=== PATIENT | male | born 1970 | race Caucasian/White ===

== ENCOUNTER 2020-07-09 23:36 | Emergency (ER) | payer OTHER, SELFPAY ==
--- NOTE | 2020-07-09 00:15 | RAD_ITS ---
STUDY: X-RAY CHEST REASON FOR EXAM: Male, 50 years old. CHEST PAIN X 2 DAYS. SOB X 1 YEAR, DIZZINESS, NUMBNESS TO THE BACK OF THE HEAD. TECHNIQUE: Single frontal view of the chest. COMPARISON: None. FINDINGS: The lungs are clear and expanded. There is no demonstrated pleural abnormality. Normal size heart. Normal mediastinum and poly. Normal visualized pulmonary arteries. Normal visualized aortic arch and descending thoracic aorta. Normal visualized thoracic spine. Normal visualized ribs, clavicles, and shoulders. There is no demonstrated abnormality of the visualized soft tissue structures of the upper abdomen. RAD/Chest 1 View (Portable) IMPRESSION: Normal x-ray examination of the chest. Electronically Signed: Heriberto Mclean MD at 0:39 EDT Tel , Service support ,
[2020-07-09 23:37] VITALS: BP 168/95; PULSE 74; RESP 18; TEMP 38.3; O2SAT 96; BMI 39.9
--- NOTE | 2020-07-09 23:38 | ED.RN ---
NO OLD EKGS IN MUSE
--- NOTE | 2020-07-09 23:46 | EKG12_ITS ---
Test Reason : CP Blood Pressure : / mmHG Vent. Rate : 075 BPM Atrial Rate : 075 BPM P-R Int : 140 ms QRS Dur : 096 ms QT Int : 354 ms P-R-T Axes : 031 027 055 degrees QTc Int : 395 ms Normal sinus rhythm Normal ECG Confirmed by MO SANCHEZ, NEISHA ([id number]), newspaper editor managing SHUBHAM BARRAZA ([id number]) on 07/17/2020 11:19:35 A M Referred By: RAFIA Confirmed By:FELICE HASSAN MD
[2020-07-10] MEDS: 0.9% Normal Saline 1,000 ML 1000 ML IV (00:11)
[2020-07-10 00:12] VITALS: O2SAT 97
[2020-07-10 00:12] LABS: Bacteria 0 SEEN /hpf (None Seen); Mucous, Urine 0 SEEN /hpf (<or=2+)
[2020-07-10 00:18] LABS: Color, Urine Yellow (Yellow); Glucose, Dipstick Normal (Normal); Ketone-Dipstick 5 mg/dl (Negative); Leukocyte Esterase-Dipstick Negative /ul (Negative); Nitrite-Dipstick Negative (Negative); Occult Blood-Urine 10 /ul (Negative); Protein-Dipstick 15 mg/dl (Negative); Specific Gravity, Urine 1.025 (1.002-1.030); Urine Bilirubin Dipstick Negative (Negative); Urine Clarity Sl. Cloudy (Clear); Urine Urobilinogen Normal (Normal)
[2020-07-10 00:20] LABS: Absolute Lymphocyte Count 1.04 X10^3/uL (0.83-4.51); Absolute Neutrophil Count 3.1 X10^3/uL (2.0-7.7); Basophil# 0.04 X10^3/uL; Basophil% 0.8 % (0-1); Eosinophil# 0.02 X10^3/uL; Eosinophils% 0.4 % (0-5); Hematocrit 42.6 % (40-54); Hemoglobin 14.5 g/dL (13.0-16.5); Lymphocyte # 1.04 X10^3/ul (4.0); Lymphocyte % 20.9 % (19-41); Mean Corpuscular Hgb 28.3 pg (27.0-32.0); Mean Platelet Vol. 9.1 fl (6.2-12.0); Monocyte# 0.73 X10^3/uL; Monocyte% 14.7 % (0-10); NRBC Flagged by Analyzer 0 % (0-5); Neutrophil # 3.12 X10^3/uL (2.7-7.7); Neutrophil % 62.8 % (47-70); Platelet Count 195 K/mm3 (150-450); RBC Distribution Width CV 13.2 % (11.6-14.6); RBC Distribution Width SD 39.6 fl (35.1-43.9); Red Blood Count 5.13 M/mm3 (4.6-6.2)
[2020-07-10 00:30] LABS: Red Blood Cells-Urine 0-5 SEEN /hpf (0-5); Squamous Epithelial Cells - UA 0 SEEN /hpf (0-5); White Blood Cells 0-5 SEEN /hpf (0-5)
[2020-07-10 00:33] LABS: Anion Gap 6 (5-15); BUN 16 mg/dL (7-18); BUN/Creat Ratio 9.1 RATIO (10-20); CPK Total, Creatine Kinase 191 U/L (39-308); Calcium,Total 8.6 mg/dL (8.5-10.1); Chloride 104 mmol/L (98-107); Creatinine, Serum 1.76 mg/dL (0.70-1.30); EST Glomerular Filtration Rate 44 mL/min (>60); Est Glom Filt Rate - Afr Amer 53 mL/min (>60); Estimated Creatinine Clearance 52.89 ml/min; Glucose 123 mg/dL (74-106); Potassium 3.5 mmol/L (3.5-5.1); Sodium Level 139 mmol/L (136-145)
[2020-07-10] MEDS: Acetaminophen 500 MG Tablet 1000 MG PO (00:42)
[2020-07-10 00:43] VITALS: BP 159/89; PULSE 74; RESP 22; TEMP 38.7; O2SAT 96
[2020-07-10 00:49] LABS: Lipase 212 U/L (73-393)
[2020-07-10 00:51] LABS: AST(SGOT) 23 U/L (15-37); Alanine Aminotransfer ALT/SGPT 43 U/L (16-61); Albumin, Serum 3.7 g/dL (3.2-5.0); Alkaline Phosphatase 113 U/L (45-117); Bilirubin, Direct 0.17 mg/dL (0.00-0.30); Globulin 3.5 g/dL (2.2-4.2); Protein, Total 7.2 g/dL (6.4-8.2)
--- NOTE | 2020-07-10 01:14 | CPS ---
pt refused covid swab-dr son aware
--- NOTE | 2020-07-10 01:19 | ED.VISSUMM ---
- ER Visit Summary Date of Service: 07/10/20 Chief Complaint: Myalgias and fever History of Present Illness: The patient is a [address] Angel Brown. He reports that he has had subjective fever and chills that began 2 days ago. Reports that he has had a constant chest pain that is 8 of 10 at worst and 7 out of 10 currently. States is worsened by exertion, breathing, or movement of his torso. Is relieved by Tylenol. Does report is been mildly short of breath. He denies a cough. Patient reports that his urine has seemed hot.. He denies any frequency. He denies any abdominal pain, nausea, vomiting, or diarrhea. He complains of diffuse myalgias. He states he has headache is 4-10 in severity. He denies any numbness or weakness. Does report that he is lightheaded. He gets worse when he stands. He has not passed out. Physical Examination: Vitals: Stable. Afebrile. General: Well-nourished and well-developed. Head: Normocephalic atraumatic. Neck: Supple, no lymphadenopathy. No JVD. Nontender. Cardiovascular: Regular rate and rhythm. No murmurs. Respiratory: No respiratory distress. Clear to auscultation bilaterally. Abdominal: Soft, mild diffuse tenderness palpation over the upper abdomen in the left upper quadrant, right upper quadrant, and epigastric regions, nondistended, normal bowel sounds. No guarding, rebound, or peritoneal signs. Back: Nontender. Extremities: Nontender, no edema. Skin: Normal color, no rash. Neurologic: Alert and oriented ?3. Cranial nerves II through XII are intact. Normal strength and sensation. Psych: Normal affect. Test Results: EKG is sinus at [address] changes. Troponin is negative after 2 days of constant pain. CPK is normal. UA shows ketones and blood. LFTs are normal. Lipase is normal. Chem-7 shows a creatinine 1.76 (no old creatinine for comparison) and glucose of 123. CBC shows monocytes of 15. Refused a COVID-19 test. Clinical Impression(s) from Imaging Studies Chest X-Ray 07/09/20 00:15 IMPRESSION: Normal x-ray examination of the chest. Electronically Signed: Heriberto Mclean MD at 0:39 EDT Tel , Service support , Emergency Department Course and Treatment: We discussed the possibility of this being COVID-19. Patient does not feel that that is the cause of his fever and has refused the test for this. I also discussed the possibility of prostatitis. Patient refused a rectal exam, but he does want to be treated for prostatitis as his urination is not normal. Treatment Plan: Patient was given a dose of Cipro here. He will be discharged on Cipro. Instructed to follow-up with Dr. Angel Brown 1 to 2 days if not improving. Return to the emergency department for any worsening symptoms. Disposition: To home in improved and stable condition. Impression: 1. Fever, uncertain cause. 2. Dyspnea. 3. Renal insufficiency. This note was generated with [employer] software. It may contain incorrect words, spelling, and punctuation that were not noted in review of the chart prior to signing ED Disposition - Plan for ED Patient: Instructions: ED FUO Adult Prescriptions: Ciprofloxacin [Cipro] 500 mg PO BID #20 tablet Referrals: Angel Brown MD [Primary Care Provider] - 1-2 Days if not improving
[2020-07-10 01:29] VITALS: BP 157/84; PULSE 67; RESP 13; O2SAT 96
[2020-07-10] MEDS: Ciprofloxacin 500 MG Tablet PO (01:35)
[2020-07-10 15:13] LABS: Hemoglobin A1c 5.6 % (3.8-5.6)
== END 2020-07-10 01:35 | disposition home or self-care (01) ==
PROVIDERS: Emergency Provider Emergency Medicine; PCP Family Medicine
DX: R50.9 Fever, unspecified (principal); N28.9 Disorder of kidney and ureter, unspecified; R06.00 Dyspnea, unspecified; R42 Dizziness and giddiness; R51 Headache; R06.02 Shortness of breath
CPT/HCPCS: 71045; 80048; 80076; 81001; 82550; 83036; 83690; 84484; 85025; 93005; 96360; 99285; J7030; A4216

== ENCOUNTER → 2020-08-07 15:13 | Outpatient (CLI) | payer OTHER, SELFPAY ==
[2020-07-09 23:37] VITALS: BMI 39.9
[2020-08-07 17:16] LABS: Anion Gap 8 (5-15); BUN 15 mg/dL (7-18); BUN/Creat Ratio 13.2 RATIO (10-20); Calcium,Total 8.7 mg/dL (8.5-10.1); Chloride 105 mmol/L (98-107); Creatinine, Serum 1.14 mg/dL (0.70-1.30); EST Glomerular Filtration Rate 72 mL/min (>60); Est Glom Filt Rate - Afr Amer 87 mL/min (>60); Glucose 93 mg/dL (74-106); Potassium 3.8 mmol/L (3.5-5.1); Sodium Level 143 mmol/L (136-145)
== END ==
PROVIDERS: PCP Family Medicine; Visit Provider Family Medicine
DX: I10 Essential (primary) hypertension (principal); N28.9 Disorder of kidney and ureter, unspecified
CPT/HCPCS: 36415; 80048